=== PATIENT | female | born 1975 | race Caucasian/White ===

== ENCOUNTER 2020-03-01 11:59 | Outpatient (NON) | payer OTHER, SELFPAY ==
[2020-03-01 23:36] LABS: SARS-CoV-2 RNA PCR Positive
== END 2020-03-01 12:00 ==
LOC: ANHCOVIDDT 12:01
PROVIDERS: Visit Provider Nurse Practitioner Adult Health
DX: U07.1 COVID-19 (principal)
CPT/HCPCS: 87635; C9803; U0003